=== PATIENT | male | born 1990 | race Caucasian/White ===

== ENCOUNTER 2021-04-27 01:21 | Emergency (ER) | payer SELFPAY ==
[~2021-04-27] VITALS: Ht 172.7 cm; Wt 72.7 kg
[2021-04-27 02:21] VITALS: BP 123/75
[2021-04-27 02:30] LABS: CLARITY,URINE SLIGHTLY CLOUDY (Clear); COLOR,URINE YELLOW (Yellow); GLUCOSE, URINE NEGATIVE (Neg); KETONES,URINE NEGATIVE (Neg); LEUKOCYTE ESTERASE ,URINE NEGATIVE (Neg); NITRITES, URINE NEGATIVE (Neg); OCCULT BLOOD,URINE NEGATIVE (Neg); PROTEIN,URINE NEGATIVE (Neg); UA COLLECTION TYPE CLN CATCH MIDSTREAM; UROBILINOGEN,URINE 0.2 E.U/dL (0.2-1.0)
[2021-04-27 02:36] LABS: BACTERIA,URINE NONE SEEN /HPF (Neg); RBC,URINE 0-2 /HPF (0-2); SQUAMOUS EPITHELIAL CELL,UR FEW /LPF (FEW); WBC,URINE 0-4 /HPF (0-4)
[2021-04-27 02:42] LABS: URINE AMPHETAMINE SCREEN NEGATIVE (Neg); URINE BARBITUATE SCREEN NEGATIVE (Neg); URINE BENZODIAZEPINES SCREEN NEGATIVE (Neg); URINE CANNABINOID SCREEN NEGATIVE (Neg); URINE COCAINE SCREEN NEGATIVE (Neg); URINE METHADONE SCREEN NEGATIVE (Neg); URINE OPIATE SCREEN NEGATIVE (Neg); URINE PHENCYCLIDINE SCREEN NEGATIVE (Neg)
== END 2021-04-27 03:30 | disposition home or self-care (01) ==
LOC: ER 01:23
DX: F32.9 Major depressive disorder, single episode, unspecified (principal)
CPT/HCPCS: 80305; 81001; 99283

== ENCOUNTER 2021-07-12 00:11 | Emergency (ER) | payer MEDICAID ==
[~2021-07-12] VITALS: Ht 172.7 cm; Wt 86.3 kg
--- NOTE | 2021-07-12 01:01 | NUR ---
PT CALM AND COOPERATIVE. PT PLACEDIN ROOM 10 AND BELONGINGS SECURED IN LOCKER 25 IN OVERFLOW. PT CAME TO ER TODAY BECAUSE OF AUDITORY HALLUCINATIONS AND VISUAL HALUCINATIONS. PT ALSO REPORTS ACTIVE SUICIDE PLAN OF WANTING TO END HIS LIFE AND JUMPO OFF THE BRIDGE THIS EVENING. PT REPORTS HISTORY OF SELF HARM BEHAVIOR AND OD
[2021-07-12 01:09] LABS: BASOPHILS # (AUTO) 0.1 X10'3 (0-0.2); BASOPHILS % (AUTO) 0.7 % (0-1); EOSINOPHILS # (AUTO) 0.1 X10'3 (0-0.9); HEMATOCRIT 41.2 % (42.0-52.0); HEMOGLOBIN 14.5 g/dl (14.0-17.9); LYMPHOCYTES % (AUTO) 33.3 % (21-51); MEAN CORPUSCULAR HEMOGLOBIN 31.8 PG (27.0-31.0); MEAN CORPUSCULAR HGB CONC 35.2 g/dL (33.0-36.5); MEAN CORPUSCULAR VOLUME 90.4 FL (78-98); MEAN PLATELET VOLUME 7.5 FL (7.4-10.4); MONOCYTES # (AUTO) 0.9 X10'3 (0-0.9); MONOCYTES % (AUTO) 9.6 % (2-12); NEUTROPHILS % (AUTO) 55.4 % (42-75); PLATELET COUNT 267 X10'3 (140-440); RED BLOOD COUNT 4.56 X10'6 (4.70-6.10); RED CELL DISTRIBUTION WIDTH 14.8 % (11.5-14.5)
[2021-07-12 01:21] LABS: URINE AMPHETAMINE SCREEN NEGATIVE (Neg); URINE BARBITUATE SCREEN NEGATIVE (Neg); URINE BENZODIAZEPINES SCREEN NEGATIVE (Neg); URINE CANNABINOID SCREEN NEGATIVE (Neg); URINE COCAINE SCREEN NEGATIVE (Neg); URINE METHADONE SCREEN NEGATIVE (Neg); URINE OPIATE SCREEN NEGATIVE (Neg); URINE PHENCYCLIDINE SCREEN NEGATIVE (Neg)
[2021-07-12 01:22] LABS: ALANINE AMINOTRANSFERASE 21 U/L (12-78); ALBUMIN 3.8 G/DL (3.4-5.0); ALBUMIN/GLOBULIN RATIO 1.1 (1.1-1.5); ALKALINE PHOSPHATASE 64 IU/L (46-116); ANION GAP 11 (8-16); ASPARTATE AMINO TRANSFERASE 20 U/L (10-37); BILIRUBIN,TOTAL 0.5 MG/DL (0.1-1.0); BLOOD UREA NITROGEN 10 MG/DL (7-18); BUN/CREATININE RATIO 9.5 (5.4-32.0); CALCIUM 8.4 MG/DL (8.5-10.1); CHLORIDE 101 MMOL/L (99-107); CREATININE 1.05 MG/DL (0.60-1.10); GLUCOSE 101 MG/DL (70-104); POTASSIUM 3.8 MMOL/L (3.5-5.1); SODIUM 139 MMOL/L (135-145); TOTAL CARBON DIOXIDE 26.6 MMOL/L (24-32); TOTAL PROTEIN 7.4 G/DL (6.4-8.2); eGFR 82 ML/MIN
[2021-07-12 01:30] LABS: ETHANOL 0.036 GM/DL (0.0-0.010)
--- NOTE | 2021-07-12 01:43 | NUR ---
PATIENT GIVEN BASIN TO WASH FEET/NAILS. TOES APPEAR REDDENED AND SWOLLEN. PT WAS COMPLIANT
--- NOTE | 2021-07-12 10:45 | NUR ---
Pt is resting.
[2021-07-12 15:00] VITALS: BP 124/92
[2021-07-12 15:32] LABS: CLARITY,URINE CLOUDY (Clear); COLOR,URINE YELLOW (Yellow); GLUCOSE, URINE NEGATIVE (Neg); KETONES,URINE NEGATIVE (Neg); LEUKOCYTE ESTERASE ,URINE NEGATIVE (Neg); NITRITES, URINE NEGATIVE (Neg); OCCULT BLOOD,URINE NEGATIVE (Neg); PH,URINE 7.5 (4.8-8.0); PROTEIN,URINE NEGATIVE (Neg); UROBILINOGEN,URINE 0.2 E.U/dL (0.2-1.0)
[2021-07-12 15:39] LABS: UA COLLECTION TYPE VOIDED
[2021-07-12 15:41] LABS: WBC,URINE 0-4 /HPF (0-4)
[2021-07-12 15:42] LABS: AMORPHOUS PHOSPHATES 3+; BACTERIA,URINE NONE SEEN /HPF (Neg); RBC,URINE NONE SEEN /HPF (0-2); SQUAMOUS EPITHELIAL CELL,UR NONE SEEN /LPF (FEW)
--- NOTE | 2021-07-12 18:14 | NUR ---
[facility] CALLED WITH ACCEPTANCE TO [facility]. PT WILL BE PICKED UP AFTER 1999 PT WAS ACCEPTED AT 1534 BY DEE CLARK SPEECH COMMUNICATION PROFESSOR
--- NOTE | 2021-07-12 19:45 | NUR ---
Patient walked in and palced in bed 21. currently resting in bed comfortably, not in physical or respiratory distress.
--- NOTE | 2021-07-12 20:31 | NUR ---
Patient discharged to [facility].
== END 2021-07-12 20:28 ==
LOC: ER 00:11
DX: R45.851 Suicidal ideations (principal); Z20.822 Contact with and (suspected) exposure to COVID-19; F32.9 Major depressive disorder, single episode, unspecified; R44.1 Visual hallucinations
CPT/HCPCS: 36415; 80053; 80305; 80320; 81001; 84443; 85025; 87635; 99285; C9803

== ENCOUNTER 2022-01-04 05:10 | Emergency (ER) | payer MEDICAID ==
[~2022-01-04] VITALS: Ht 172.7 cm; Wt 72.7 kg
[2022-01-04 05:25] VITALS: BP 143/95
--- NOTE | 2022-01-04 05:41 | NUR ---
PT REFUSED EKG, STATES HE WANTS TO LEAVE NOW, FEELS BETTER NOW THAT HE'S AWAY FROM "THAT SHOPPING MALL"
== END 2022-01-04 12:02 | disposition left against medical advice (07) ==
LOC: ER 05:11
DX: F10.929 Alcohol use, unspecified with intoxication, unspecified (principal); Z53.21 Procedure and treatment not carried out due to patient leaving prior to being seen by health care provider; Y90.9 Presence of alcohol in blood, level not specified

== ENCOUNTER 2022-01-04 12:12 | Emergency (ER) | payer MEDICAID ==
[~2022-01-04] VITALS: Ht 172.7 cm; Wt 72.7 kg
[2022-01-04 12:35] VITALS: BP 150/86
[2022-01-04] MEDS ORDERED: LORazepam 1 MG tablet PO ONE (13:55)
== END 2022-01-04 14:17 | disposition home or self-care (01) ==
LOC: ER 12:13
DX: F41.9 Anxiety disorder, unspecified (principal); F41.0 Panic disorder [episodic paroxysmal anxiety]; F17.200 Nicotine dependence, unspecified, uncomplicated
CPT/HCPCS: 99283

== ENCOUNTER 2022-01-06 03:52 | Emergency (ER) | payer MEDICAID | END 2022-01-06 04:03 | disposition left against medical advice (07) | LOC: ER 03:54 | DX: Z04.6 Encounter for general psychiatric examination, requested by authority (principal); Z53.21 Procedure and treatment not carried out due to patient leaving prior to being seen by health care provider ==

== ENCOUNTER 2022-01-06 04:05 | Emergency (ER) | payer MEDICAID ==
[~2022-01-06] VITALS: Ht 167.6 cm; Wt 86.1 kg
[2022-01-06 08:39] LABS: BASOPHILS # (AUTO) 0.1 X10'3 (0-0.2); EOSINOPHILS # (AUTO) 0.1 X10'3 (0-0.9); EOSINOPHILS % (AUTO) 1.4 % (0-6); HEMATOCRIT 41.7 % (42.0-52.0); HEMOGLOBIN 14.2 g/dl (14.0-17.9); LYMPHOCYTES # (AUTO) 1.6 X10'3 (1.1-4.8); LYMPHOCYTES % (AUTO) 15.9 % (21-51); MEAN CORPUSCULAR HEMOGLOBIN 32.7 PG (27.0-31.0); MEAN CORPUSCULAR HGB CONC 34.1 g/dL (33.0-36.5); MEAN CORPUSCULAR VOLUME 95.8 FL (78-98); MONOCYTES % (AUTO) 10.4 % (2-12); NEUTROPHILS # (AUTO) 7.1 X10'3 (1.8-7.7); NEUTROPHILS % (AUTO) 71.3 % (42-75); PLATELET COUNT 357 X10'3 (140-440); RED BLOOD COUNT 4.35 X10'6 (4.70-6.10); RED CELL DISTRIBUTION WIDTH 14.1 % (11.5-14.5)
[2022-01-06 08:56] LABS: ALANINE AMINOTRANSFERASE 20 U/L (12-78); ALBUMIN 3.7 G/DL (3.4-5.0); ALBUMIN/GLOBULIN RATIO 0.8 (1.1-1.5); ALKALINE PHOSPHATASE 76 IU/L (46-116); ANION GAP 11 (8-16); ASPARTATE AMINO TRANSFERASE 20 U/L (10-37); BLOOD UREA NITROGEN 13 MG/DL (7-18); BUN/CREATININE RATIO 12.7 (5.4-32.0); CALCIUM 8.7 MG/DL (8.5-10.1); CHLORIDE 99 MMOL/L (99-107); CREATININE 1.02 MG/DL (0.60-1.10); GLUCOSE 92 MG/DL (70-104); POTASSIUM 3.8 MMOL/L (3.5-5.1); SODIUM 135 MMOL/L (135-145); TOTAL CARBON DIOXIDE 25.1 MMOL/L (24-32); TOTAL PROTEIN 8.2 G/DL (6.4-8.2); eGFR 85 ML/MIN
[2022-01-06 08:58] LABS: ETHANOL < 0.010 GM/DL (0.0-0.010)
--- NOTE | 2022-01-06 17:30 | NUR ---
31yr old male patient in no form of distress, Admitted for mental eval. he is alert and orientedx3. Dissheveled and highly unkempt. This rn offered rn a shower but he declined. Patient requested breakfast on admission and had received all 3 square meals. Communicated with Md Grace about pt's need for resources, stated she is following up promptly. reason patient was changed to inpt. safety maintained the entire shift. VSS. will continue to monitor.
[2022-01-06 20:38] LABS: URINE AMPHETAMINE SCREEN POSITIVE (Neg); URINE BARBITUATE SCREEN NEGATIVE (Neg); URINE BENZODIAZEPINES SCREEN NEGATIVE (Neg); URINE CANNABINOID SCREEN NEGATIVE (Neg); URINE COCAINE SCREEN NEGATIVE (Neg); URINE METHADONE SCREEN NEGATIVE (Neg); URINE OPIATE SCREEN NEGATIVE (Neg); URINE PHENCYCLIDINE SCREEN NEGATIVE (Neg)
--- NOTE | 2022-01-06 21:28 | NUR ---
PT WAS GIVEN SANDWICH AND CRACKERS AND ASSISTED TO THE BATHROOM. PT IS RESTING IN BED AND IN NO APPARENT DISTRESS.
--- NOTE | 2022-01-06 21:37 | NUR ---
Pt got out of bed and threw tray and water against the wall. Pt stated "just call the police" when RN entered room. Pt immediately got back into bed and closed eyes.
--- NOTE | 2022-01-06 23:59 | NUR ---
Pt appears to be asleep on left side. Equal rise and fall of chest noted
--- NOTE | 2022-01-07 01:00 | NUR ---
Pt sleeping. Equal rise and fall of chest noted
--- NOTE | 2022-01-07 02:30 | NUR ---
Pt resting in bed with eyes open. Pt is in no apparent distress. Equal rise and fall of chest noted
--- NOTE | 2022-01-07 03:53 | NUR ---
Pt appears to be asleep. Equal rise and fall of chest noted
--- NOTE | 2022-01-07 05:21 | NUR ---
Pt appears to be sleeping. Equal rise and fall of chest noted
--- NOTE | 2022-01-07 08:01 | NUR ---
Patient eating from provided breakfast tray.
--- NOTE | 2022-01-07 08:37 | NUR ---
PACKET FAXED TO [facility]
--- NOTE | 2022-01-07 09:45 | NUR ---
Patient sleeping on stretcher, no signs of distress noted. Will coninu monito.
--- NOTE | 2022-01-07 14:24 | NUR ---
Spoke with [facility]. Patient accepted at [facility], need new order for TSH, Covid Sab, and UA. Orders placed for add on lab test, lab made aware.
[2022-01-07 14:48] LABS: CLARITY,URINE CLEAR (Clear); COLOR,URINE YELLOW (Yellow); GLUCOSE, URINE NEGATIVE (Neg); KETONES,URINE NEGATIVE (Neg); LEUKOCYTE ESTERASE ,URINE NEGATIVE (Neg); NITRITES, URINE NEGATIVE (Neg); OCCULT BLOOD,URINE NEGATIVE (Neg); PROTEIN,URINE NEGATIVE (Neg); UROBILINOGEN,URINE 0.2 E.U/dL (0.2-1.0)
[2022-01-07 14:51] LABS: UA COLLECTION TYPE CLN CATCH MIDSTREAM
--- NOTE | 2022-01-07 16:20 | NUR ---
Patient observed walking to restroom and returned to assigned room without difficulty. Will continue to monitor.
[2022-01-07 17:53] VITALS: BP 130/78
== END 2022-01-07 20:30 ==
LOC: ER 04:05
DX: R44.3 Hallucinations, unspecified (principal); Z20.822 Contact with and (suspected) exposure to COVID-19; Z56.0 Unemployment, unspecified
CPT/HCPCS: 36415; 80053; 80305; 80320; 81003; 84443; 85025; 87811; 99285; A6449